=== PATIENT | male | born 1975 | race Caucasian/White ===

== ENCOUNTER 2019-01-08 13:55 | Emergency (ER) | payer BC ==
[2019-01-08] MEDS ORDERED: Sodium Chloride 0.9% 1,000 ML IV ONE (14:03)
--- NOTE | 2019-01-08 14:06 | EDM.PDOC ---
ED HPI GENERAL MEDICAL PROBLEM - General Chief Complaint: Respiratory Problem Stated Complaint: CHEST CONGESTION Time Seen by Provider: 01/08/19 13:57 - History of Present Illness INITIAL COMMENTS - FREE TEXT/NARRATIVE: HISTORY AND PHYSICAL: History of present illness: Patient 43-year-old white male who presents with a history of cough 1 week and intermittent hemoptysis he denies weight loss does not report any fever chills he is a nonsmoker he states this is gotten progressively worse and he's had episodes with bright red blood particularly in the morning Review of systems: As per history of present illness and below otherwise all systems reviewed and negative. Past medical history: As per history of present illness and as reviewed below otherwise noncontributory. Surgical history: As per history of present illness and as reviewed below otherwise noncontributory. Social history: No reported history of drug or alcohol abuse. Family history: As per history of present illness and as reviewed below otherwise noncontributory. Physical exam: HEENT: Atraumatic, normocephalic, pupils reactive, negative for conjunctival pallor or scleral icterus, mucous membranes moist, throat clear, neck supple, nontender, trachea midline. Lungs: Clear to auscultation, breath sounds equal bilaterally, chest nontender. Heart: S1S2, regular, negative for clicks, rubs, or JVD. Abdomen: Soft, nondistended, nontender. Negative for masses or hepatosplenomegaly. Negative for costovertebral tenderness. Pelvis: Stable nontender. Genitourinary: Deferred. Rectal: Deferred. Extremities: Atraumatic, negative for cords or calf pain. Neurovascular unremarkable. Neuro: Awake, alert, oriented. Cranial nerves II through XII unremarkable. Cerebellum unremarkable. Motor and sensory unremarkable throughout. Exam nonfocal. Diagnostics: CBC CMP PT/INR blood culture 2 PPD EKG CTA chest Therapeutics: Saline 1 L bolus Impression: #1 history of hemoptysis Definitive disposition and diagnosis as appropriate pending reevaluation and review of above. - Related Data Allergies Allergy/AdvReac Type Severity Reaction Status Date / Time No Known Allergies Allergy Verified 01/08/19 14:29 Home Meds: Home Meds Albuterol Sulfate [Proair Hfa] 2 puff INH ASDIRECTED 01/08/19 [History] Amoxicillin/Clavulanate K [Augmentin 875-125 MG] 1 tab PO BID 01/08/19 [History] ED ROS GENERAL - Review of Systems Review Of Systems: ROS reveals no pertinent complaints other than HPI. ED EXAM, GENERAL - Physical Exam Exam: See Below (See dictation) Course - Vital Signs Last Recorded V/S: Last Vital Signs Temp 36.4 C 01/08/19 14:00 Pulse 86 01/08/19 15:33 Resp 20 01/08/19 15:33 BP 105/72 01/08/19 15:45 Pulse Ox 96 01/08/19 15:33 - Orders/Labs/Meds Orders: Active Orders 24 hr Category Date Time Status EKG Documentation Completion [RC] STAT Care 01/08/19 14:00 Active Pulse Oximetry [RC] ASDIRECTED Care 01/08/19 14:00 Active CULTURE BLOOD [BC] Stat Lab 01/08/19 14:34 Received CULTURE BLOOD [BC] Stat Lab 01/08/19 14:52 Received CULTURE SPUTUM + SMEAR [RM] Stat Lab 01/08/19 14:00 Ordered QUANTIFERON TB PLUS [REF] Stat Lab 01/08/19 14:52 Received Blood Culture x2 Reflex Set [OM.PC] Stat Oth 01/08/19 14:00 Ordered Labs: Laboratory Tests 01/08/19 01/08/19 01/08/19 Range/Units 14:25 14:52 14:52 WBC 7.30 (4.0-11.0) K/uL RBC 4.65 (4.50-5.90) M/uL Hgb 13.6 (13.0-17.0) g/dL Hct 41.9 (38.0-50.0) % MCV 90.1 (80.0-98.0) fL MCH 29.2 (27.0-32.0) pg MCHC 32.5 (31.0-37.0) g/dL RDW Std Deviation 43.9 (28.0-62.0) fl RDW Coeff of Gavin 14 (11.0-15.0) % Plt Count 262 (150-400) K/uL MPV 10.60 (7.40-12.00) fL Neut % (Auto) 65.9 (48.0-80.0) % Lymph % (Auto) 24.1 (16.0-40.0) % Swisher % (Auto) 7.0 (0.0-15.0) % Eos % (Auto) 2.5 (0.0-7.0) % Baso % (Auto) 0.5 (0.0-1.5) % Neut # (Auto) 4.8 (1.4-5.7) K/uL Lymph # (Auto) 1.8 (0.6-2.4) K/uL Swisher # (Auto) 0.5 (0.0-0.8) K/uL Eos # (Auto) 0.2 (0.0-0.7) K/uL Baso # (Auto) 0.0 (0.0-0.1) K/uL Nucleated RBC % 0.0 /100WBC Nucleated RBCs # 0 K/uL INR 0.97 Sodium 142 (136-148) mmol/L Potassium 4.1 (3.5-5.1) mmol/L Chloride 106 (98-107) mmol/L Carbon Dioxide 25.8 (21.0-32.0) mmol/L BUN 14 (7.0-18.0) mg/dL Creatinine 1.0 (0.8-1.3) mg/dL Est Cr Clr Drug Dosing 93.28 mL/min Estimated GFR (MDRD) > 60.0 ml/min Glucose 107 H (74-106) mg/dL Calcium 8.1 L (8.5-10.1) mg/dL Total Bilirubin 0.3 (0.2-1.0) mg/dL AST 50 H (15-37) IU/L ALT 97 H (14-63) IU/L Alkaline Phosphatase 76 (46-116) U/L Total Protein 6.6 (6.4-8.2) g/dL Albumin 3.3 L (3.4-5.0) g/dL Globulin 3.3 (2.6-4.0) g/dL Albumin/Globulin Ratio 1.0 (0.9-1.6) Meds: Medications Discontinued Medications Generic Name Dose Route Start Last Admin Trade Name Freq PRN Reason Stop Dose Admin Sodium Chloride 1,000 mls @ 999 mls/hr 01/08/19 14:03 01/08/19 14:14 Normal Saline IV 01/08/19 15:03 999 mls/hr STAT ONE Administration Iopamidol 50 ml 01/08/19 16:17 01/08/19 16:17 Isovue Multipack-370 (76%) IVPUSH 01/08/19 16:18 50 ml ONETIME STA Administration Departure - Departure Time of Disposition: 17:47 Disposition: Home, Self-Care 01 Condition: Good Clinical Impression: Pneumonia - Discharge Information Forms: ED Department Discharge Additional Instructions: The following information is given to patients seen in the emergency department who are being discharged to home. This information is to outline your options for follow-up care. We provide all patients seen in our emergency department with a follow-up referral. The need for follow-up, as well as the timing and circumstances, are variable depending upon the specifics of your emergency department visit. If you don't have a primary care physician on staff, we will provide you with a referral. We always advise you to contact your personal physician following an emergency department visit to inform them of the circumstance of the visit and for follow-up with them and/or the need for any referrals to a consulting specialist. The emergency department will also refer you to a specialist when appropriate. This referral assures that you have the opportunity for followup care with a specialist. All of these measure are taken in an effort to provide you with optimal care, which includes your followup. Under all circumstances we always encourage you to contact your private physician who remains a resource for coordinating your care. When calling for followup care, please make the office aware that this follow-up is from your recent emergency room visit. If for any reason you are refused follow-up, please contact the [facility] emergency department at and asked to speak to the emergency department charge nurse. [facility] [address] [place] [id number] Levaquin as prescribed albuterol as directed Phenergan with codeine as prescribed follow-up primary medical doctor and/or clinic above return as needed as discussed infectious precautions as discussed - My Orders Last 24 Hours: My Active Orders 01/08/19 14:00 EKG Documentation Completion [RC] STAT Pulse Oximetry [RC] ASDIRECTED CULTURE SPUTUM + SMEAR [RM] Stat Blood Culture x2 Reflex Set [OM.PC] Stat 01/08/19 14:34 CULTURE BLOOD [BC] Stat 01/08/19 14:52 CULTURE BLOOD [BC] Stat QUANTIFERON TB PLUS [REF] Stat - Assessment/Plan Last 24 Hours: My Active Orders 01/08/19 14:00 EKG Documentation Completion [RC] STAT Pulse Oximetry [RC] ASDIRECTED CULTURE SPUTUM + SMEAR [RM] Stat Blood Culture x2 Reflex Set [OM.PC] Stat 01/08/19 14:34 CULTURE BLOOD [BC] Stat 01/08/19 14:52 CULTURE BLOOD [BC] Stat QUANTIFERON TB PLUS [REF] Stat
[2019-01-08 15:36] LABS: BLOOD UREA NITROGEN,BUN 14 mg/dL (7.0-18.0); CARBON DIOXIDE,CO2 25.8 mmol/L (21.0-32.0); CHLORIDE,CL 106 mmol/L (98-107); GLUCOSE RANDOM 107 mg/dL (74-106); POTASSIUM,K 4.1 mmol/L (3.5-5.1); SODIUM,NA 142 mmol/L (136-148)
[2019-01-08] MEDS ORDERED: Iopamidol 755 MG/ML 500 ML Multipack Bottle IVPUSH STA (16:17)
--- NOTE | 2019-01-08 17:11 | CT ---
INDICATION: Chest pain, coughing up blood TECHNIQUE: CT chest pulmonary PE protocol acquired with 50 cc Isovue 370 IV contrast. COMPARISON: None FINDINGS: Cardiovascular structures: Normal vascular enhancement of the pulmonary arteries, no sign of pulmonary embolism. Heart size is normal. No sign of aneurysm in the thoracic aorta. Mediastinum and jason: No mass or adenopathy. Lungs: Patchy infiltrate in the left lower lobe. Pleura and pericardium: No effusions. Chest wall and axilla: No mass or adenopathy. Upper abdomen: Unremarkable. Bones: No significant findings. IMPRESSION: No pulmonary embolism. Left lower lobe pneumonia. Please note that all CT scans at this facility use dose modulation, iterative reconstruction, and/or weight-based dosing when appropriate to reduce radiation dose to as low as reasonably achievable. Dictated by Adriana Ruby MD @ Jan 08 2019 5:09PM Signed by Dr. Adriana Ruby @ Jan 08 2019 5:10PM
== END 2019-01-08 18:07 | disposition home or self-care (01) ==
LOC: MW.ED 13:55
DX: J18.9 Pneumonia, unspecified organism (principal); Z87.09 Personal history of other diseases of the respiratory system
CPT/HCPCS: 36415; 71275; 80053; 85025; 85610; 86480; 87040; 87804; 93005; 96360; 99284; J7040; Q9967